=== PATIENT | male | born 1995 | race African-American/Black ===

== ENCOUNTER 2022-06-03 12:03 | Emergency (ER) | payer OTHER | END 2022-06-03 14:16 | disposition home or self-care (01) | LOC: MW.ED 12:03 | DX: M54.50 Low back pain, unspecified (principal); I10 Essential (primary) hypertension; V89.2XXA Person injured in unspecified motor-vehicle accident, traffic, initial encounter; Y92.410 Unspecified street and highway as the place of occurrence of the external cause | CPT/HCPCS: 72100; 72100-26; 99283 ==